=== PATIENT | female | born 1930 | race Caucasian/White ===

== ENCOUNTER 2018-07-24 19:10 | Inpatient (IN) | payer MEDICARE, OTHER, MEDICAID ==
[2018-07-24 19:28] LABS: ADD MAN DIFF? NO
[2018-07-24 19:32] LABS: WHITE BLOOD COUNT 13.3 10^3/ul (4.8-10.8)
[2018-07-24 19:32] LABS: ABNORMAL IP MESSAGE 1; BASOPHIL # 0.1 10^3/ul (0.0-0.1); BASOPHILS % 0.5 % (0.0-2.0); EOSINOPHILS # 0.1 10^3/ul (0.0-0.5); EOSINOPHILS % 0.6 % (0.0-7.0); HEMATOCRIT 32.9 % (37.0-47.0); HEMOGLOBIN 9.4 g/dl (12.0-16.0); LYMPHOCYTES # 2.7 10^3/ul (0.8-2.9); LYMPHOCYTES % 20.6 % (15.0-51.0); MEAN CORPUSCULAR HEMOGLOBIN 25.6 pg (29.0-33.0); MEAN CORPUSCULAR HGB CONC 28.6 g/dl (32.0-37.0); MEAN CORPUSCULAR VOLUME 89.6 fl (82.0-101.0); MEAN PLATELET VOLUME 11.1 fl (7.4-10.4); MONOCYTE # 1.6 10^3/ul (0.3-0.9); MONOCYTES % 11.9 % (0.0-11.0); NEUTROPHIL # 8.8 10^3/ul (1.6-7.5); NEUTROPHILS % 65.9 % (39.0-77.0); PLATELET COUNT 385 10^3/UL (140-415); RED BLOOD COUNT 3.67 10^6/ul (4.20-5.40); RED CELL DISTRIBUTION WIDTH 19.5 % (11.5-14.5)
[2018-07-24 19:35] LABS: POSITIVE DIFF @See below
[2018-07-24] MEDS: CEFTRIAXONE 1 GM/50 ML (PMX) 50 ML IVPB (19:44)
[2018-07-24] MEDS: SODIUM CHLORIDE 0.9% 1L BAG IV* (19:44)
[2018-07-24 19:49] LABS: ALANINE AMINOTRANSFERASE 13 IU/L (13-69); ALBUMIN 3.6 g/dl (3.3-4.9); ALBUMIN/GLOBULIN RATIO 0.72; ALKALINE PHOSPHATASE 122 IU/L (42-121); ANION GAP 17 (5-13); ASPARTATE AMINO TRANSFERASE 33 IU/L (15-46); BLOOD UREA NITROGEN 101 mg/dl (7-20); CARBON DIOXIDE 25 mmol/L (21-31); CHLORIDE 114 mmol/L (97-110); CREATININE 4.14 mg/dl (0.44-1.00); GLUCOSE 248 mg/dl (70-220); POTASSIUM 4.1 mmol/L (3.5-5.1); SODIUM 156 mmol/L (135-144); TOTAL PROTEIN 8.6 g/dl (6.1-8.1)
[2018-07-24 19:50] LABS: INR 1.24; PROTIME 15.8 Sec (11.9-14.9); PT RATIO 1.2
[2018-07-24 20:00] LABS: TROPONIN-I 0.093 ng/ml (0.000-0.120)
[2018-07-24 20:32] LABS: ADD UMIC YES; UR ASCORBIC ACID 20 mg/dL (NEGATIVE); UR BACTERIA FEW /HPF (NONE SEEN); UR BILIRUBIN (Dip) NEGATIVE (NEGATIVE); UR BLOOD (Dip) 2+ mg/dL (NEGATIVE); UR CLARITY TURBID (CLEAR); UR COLOR AMBER (YELLOW); UR GLUCOSE (Dip) NEGATIVE (NEGATIVE); UR KETONES (Dip) NEGATIVE (NEGATIVE); UR LEUKOCYTE ESTERASE (Dip) 3+ Leu/ul (NEGATIVE); UR NITRITE (Dip) NEGATIVE (NEGATIVE); UR RBC 106 /HPF (0-5); UR SPECIFIC GRAVITY (Dip) 1.016 (1.003-1.030); UR TOTAL PROTEIN (Dip) 1+ mg/dl (NEGATIVE); UR UROBILINOGEN (Dip) NEGATIVE (NEGATIVE); UR WBC > 182 /HPF (0-5)
[2018-07-24] MEDS ORDERED: SOD CHLORIDE 0.9% 1,000 ML IV (23:11)
[2018-07-24] MEDS ORDERED: ALBUTEROL/IPRATROPIUM (NEB) 3 ML AMP HHN (23:30)
[2018-07-24] MEDS ORDERED: ACETAMINOPHEN 325 MG TAB PO (23:30)
[2018-07-24] MEDS: DEXTROSE 5% 1,000 ML IV (23:30)
[2018-07-24] MEDS ORDERED: NACL 0.9% 3 ML SYG IV (23:30)
[2018-07-24] MEDS ORDERED: ONDANSETRON 4 MG INJ IV (23:30)
[2018-07-24] MEDS ORDERED: GLUCAGON 1 MG INJ IM (23:45)
[2018-07-24] MEDS ORDERED: GLUCOSE GEL 15 GRAM TUBE BUCCAL (23:45)
[2018-07-24] MEDS ORDERED: DEXTROSE 50% 50 ML SYRINGE IV ×2 (23:45)
[2018-07-24] MEDS ORDERED: GLUCOSE GEL 15 GRAM TUBE PO ×2 (23:45)
[2018-07-24 23:48] LABS: LACTIC ACID 1.8 mmol/L (0.5-2.0)
[2018-07-25] MEDS: ACCU-CHEK XX (02:00)
[2018-07-25 02:18] LABS: OCCULT BLOOD STOOL POSITIVE (NEGATIVE)
[2018-07-25] MEDS ORDERED: PENDING SANTYL ORDER FOR WOUND CARE XX (03:00)
[2018-07-25 05:35] LABS: ADD MAN DIFF? NO
[2018-07-25 05:48] LABS: WHITE BLOOD COUNT 10.2 10^3/ul (4.8-10.8)
[2018-07-25 05:48] LABS: ABNORMAL IP MESSAGE 1; BASOPHIL # 0.1 10^3/ul (0.0-0.1); BASOPHILS % 0.5 % (0.0-2.0); EOSINOPHILS # 0.4 10^3/ul (0.0-0.5); EOSINOPHILS % 3.9 % (0.0-7.0); HEMATOCRIT 29.3 % (37.0-47.0); HEMOGLOBIN 8.4 g/dl (12.0-16.0); LYMPHOCYTES # 2.2 10^3/ul (0.8-2.9); LYMPHOCYTES % 21.8 % (15.0-51.0); MEAN CORPUSCULAR HEMOGLOBIN 26.3 pg (29.0-33.0); MEAN CORPUSCULAR HGB CONC 28.7 g/dl (32.0-37.0); MEAN CORPUSCULAR VOLUME 91.6 fl (82.0-101.0); MEAN PLATELET VOLUME 11.5 fl (7.4-10.4); MONOCYTE # 0.8 10^3/ul (0.3-0.9); MONOCYTES % 7.9 % (0.0-11.0); NEUTROPHIL # 6.7 10^3/ul (1.6-7.5); NEUTROPHILS % 65.5 % (39.0-77.0); PLATELET COUNT 258 10^3/UL (140-415); RED CELL DISTRIBUTION WIDTH 19.5 % (11.5-14.5)
[2018-07-25 05:56] LABS: SODIUM,URINE RANDOM 61 mmol/L (30-90)
[2018-07-25 05:56] LABS: POTASSIUM,URINE RANDOM 45.3 mmol/L (25-125)
[2018-07-25 05:57] LABS: HEMOGLOBIN A1C 5.7 % (0-5.9)
[2018-07-25 05:59] LABS: POSITIVE DIFF @See below
[2018-07-25 06:18] LABS: ALANINE AMINOTRANSFERASE 13 IU/L (13-69); ALBUMIN 3.1 g/dl (3.3-4.9); ALBUMIN/GLOBULIN RATIO 0.64; ALKALINE PHOSPHATASE 100 IU/L (42-121); ANION GAP 12 (5-13); ASPARTATE AMINO TRANSFERASE 32 IU/L (15-46); BILIRUBIN,INDIRECT 0.1 mg/dl (0-1.1); BILIRUBIN,TOTAL 0.1 mg/dl (0.2-1.3); BLOOD UREA NITROGEN 96 mg/dl (7-20); CALCIUM 8.2 mg/dl (8.4-10.2); CARBON DIOXIDE 24 mmol/L (21-31); CHLORIDE 122 mmol/L (97-110); CREATININE 3.79 mg/dl (0.44-1.00); GLUCOSE 121 mg/dl (70-220); MAGNESIUM 2.5 mg/dl (1.7-2.5); SODIUM 158 mmol/L (135-144); TOTAL PROTEIN 7.9 g/dl (6.1-8.1)
[2018-07-25 06:23] LABS: IRON 30 ug/dl (35-150)
[2018-07-25 06:28] LABS: CHOL/HDL RATIO 7.6 RATIO; HDL CHOLESTEROL 8 mg/dl (33-92); LDL CHOLESTEROL,CALCULATED 28 mg/dl; TRIGLYCERIDES 127 mg/dl (0-149)
[2018-07-25 06:28] LABS: CHOLESTEROL 61 mg/dl (100-200)
[2018-07-25 06:33] LABS: % IRON SATURATION 10 % SAT (22-52); TOTAL IRON BINDING CAPACITY 292 ug/dl (241-421)
[2018-07-25 06:42] LABS: FERRITIN 19.7 ng/ml (11.1-264.0)
[2018-07-25] MEDS: FISH OIL 1,000 MG CAP PO ×2 (10:00→20:55)
[2018-07-25] MEDS: INSULIN ASPART [NOVOLOG] 3 ML PEN SC ×4 (10:04→21:00)
[2018-07-25] MEDS: CEFTRIAXONE 1 GM/50 ML (PMX) 50 ML IVPB (10:06)
[2018-07-25] MEDS: ENOXAPARIN 40 MG/0.4 ML SYG SC (11:01)
[2018-07-25 14:17] LABS: ANION GAP 11 (5-13); BLOOD UREA NITROGEN 95 mg/dl (7-20); CALCIUM 7.7 mg/dl (8.4-10.2); CARBON DIOXIDE 25 mmol/L (21-31); CHLORIDE 117 mmol/L (97-110); CREATININE 3.31 mg/dl (0.44-1.00); GLUCOSE 120 mg/dl (70-220); POTASSIUM 3.7 mmol/L (3.5-5.1); SODIUM 153 mmol/L (135-144)
[2018-07-25 17:14] LABS: OCCULT BLOOD STOOL NEGATIVE (NEGATIVE)
[2018-07-25] MEDS: DEXTROSE 5% 1,000 ML IV ×2 (17:54→20:53)
[2018-07-26] MEDS: ACCU-CHEK XX (02:00)
[2018-07-26 05:42] LABS: ABNORMAL IP MESSAGE 1; ADD MAN DIFF? NO; BASOPHILS % 0.7 % (0.0-2.0); EOSINOPHILS # 0.5 10^3/ul (0.0-0.5); EOSINOPHILS % 7.7 % (0.0-7.0); HEMATOCRIT 28.2 % (37.0-47.0); LYMPHOCYTES # 1.8 10^3/ul (0.8-2.9); LYMPHOCYTES % 31.3 % (15.0-51.0); MEAN CORPUSCULAR HEMOGLOBIN 26.1 pg (29.0-33.0); MEAN CORPUSCULAR HGB CONC 28.4 g/dl (32.0-37.0); MEAN CORPUSCULAR VOLUME 92.2 fl (82.0-101.0); MEAN PLATELET VOLUME 11.5 fl (7.4-10.4); MONOCYTE # 0.5 10^3/ul (0.3-0.9); MONOCYTES % 8.2 % (0.0-11.0); NEUTROPHIL # 3.1 10^3/ul (1.6-7.5); NEUTROPHILS % 51.9 % (39.0-77.0); PLATELET COUNT 211 10^3/UL (140-415); RED BLOOD COUNT 3.06 10^6/ul (4.20-5.40); RED CELL DISTRIBUTION WIDTH 18.6 % (11.5-14.5)
[2018-07-26 05:42] LABS: WHITE BLOOD COUNT 5.9 10^3/ul (4.8-10.8)
[2018-07-26 05:44] LABS: POSITIVE DIFF @See below
[2018-07-26 06:25] LABS: ANION GAP 11 (5-13); BLOOD UREA NITROGEN 87 mg/dl (7-20); CALCIUM 8.2 mg/dl (8.4-10.2); CARBON DIOXIDE 25 mmol/L (21-31); CHLORIDE 111 mmol/L (97-110); CREATININE 2.66 mg/dl (0.44-1.00); GLUCOSE 107 mg/dl (70-220); MAGNESIUM 2.2 mg/dl (1.7-2.5); PHOSPHORUS 4.4 mg/dl (2.5-4.9); POTASSIUM 3.3 mmol/L (3.5-5.1); SODIUM 147 mmol/L (135-144)
[2018-07-26] MEDS: CEFTRIAXONE 1 GM/50 ML (PMX) 50 ML IVPB (08:33)
[2018-07-26] MEDS: BALSAM PERU/CASTOR OIL 60 GM TUBE TOP (08:33)
[2018-07-26] MEDS: DEXTROSE 5%-0.225% NACL 1,000 ML IV ×2 (08:40→18:08)
[2018-07-26] MEDS: ENOXAPARIN 40 MG/0.4 ML SYG SC (08:50)
[2018-07-26] MEDS: INSULIN ASPART [NOVOLOG] 3 ML PEN SC ×4 (08:52→20:06)
[2018-07-26] MEDS: FISH OIL 1,000 MG CAP PO ×2 (08:53→20:00)
[2018-07-26] MEDS: POTASSIUM CHLORIDE 50 ML IVPB ×2 (10:11→12:13)
[2018-07-27] MEDS: ACCU-CHEK XX (01:20)
[2018-07-27] MEDS: DEXTROSE 5%-0.225% NACL 1,000 ML IV ×2 (03:43→14:15)
[2018-07-27 05:45] LABS: ADD MAN DIFF? NO
[2018-07-27 05:48] LABS: WHITE BLOOD COUNT 4.3 10^3/ul (4.8-10.8)
[2018-07-27 05:48] LABS: ABNORMAL IP MESSAGE 1; BASOPHILS % 0.5 % (0.0-2.0); EOSINOPHILS # 0.3 10^3/ul (0.0-0.5); HEMATOCRIT 25.9 % (37.0-47.0); HEMOGLOBIN 7.4 g/dl (12.0-16.0); LYMPHOCYTES # 1.2 10^3/ul (0.8-2.9); LYMPHOCYTES % 28.6 % (15.0-51.0); MEAN CORPUSCULAR HEMOGLOBIN 25.5 pg (29.0-33.0); MEAN CORPUSCULAR HGB CONC 28.6 g/dl (32.0-37.0); MEAN CORPUSCULAR VOLUME 89.3 fl (82.0-101.0); MEAN PLATELET VOLUME 11.4 fl (7.4-10.4); MONOCYTE # 0.4 10^3/ul (0.3-0.9); MONOCYTES % 8.6 % (0.0-11.0); NEUTROPHIL # 2.4 10^3/ul (1.6-7.5); NEUTROPHILS % 56.1 % (39.0-77.0); PLATELET COUNT 206 10^3/UL (140-415); RED CELL DISTRIBUTION WIDTH 18.4 % (11.5-14.5)
[2018-07-27 06:02] LABS: POSITIVE DIFF @See below
[2018-07-27 06:16] LABS: ANION GAP 9 (5-13); BLOOD UREA NITROGEN 67 mg/dl (7-20); CALCIUM 8.4 mg/dl (8.4-10.2); CARBON DIOXIDE 25 mmol/L (21-31); CHLORIDE 112 mmol/L (97-110); CREATININE 1.68 mg/dl (0.44-1.00); GLUCOSE 136 mg/dl (70-220); POTASSIUM 3.8 mmol/L (3.5-5.1); SODIUM 146 mmol/L (135-144)
[2018-07-27 06:29] LABS: FREE T4 (FREE THYROXINE) 1.28 ng/dl (0.85-1.93)
[2018-07-27] MEDS: INSULIN ASPART [NOVOLOG] 3 ML PEN SC ×4 (08:00→20:17)
[2018-07-27] MEDS: CEFTRIAXONE 1 GM/50 ML (PMX) 50 ML IVPB (08:10)
[2018-07-27] MEDS: ENOXAPARIN 40 MG/0.4 ML SYG SC (08:17)
[2018-07-27] MEDS: BALSAM PERU/CASTOR OIL 60 GM TUBE TOP (08:18)
[2018-07-27] MEDS: FISH OIL 1,000 MG CAP PO ×2 (08:19→20:17)
[2018-07-27] MEDS: morphine 2 MG INJ IV (09:25)
[2018-07-27] MEDS: ACETAMINOPHEN 325 MG TAB PO ×2 (11:30→19:30)
[2018-07-27 11:52] LABS: HEMATOCRIT 31.9 % (37.0-47.0); HEMOGLOBIN 9.1 g/dl (12.0-16.0)
[2018-07-27] MEDS: MEROPENEM 1 GM/50ML(PMX) 50 ML IVPB ×2 (13:35→20:51)
[2018-07-28] MEDS: ACCU-CHEK XX (00:49)
[2018-07-28] MEDS: DEXTROSE 5%-0.225% NACL 1,000 ML IV ×3 (00:50→11:15)
[2018-07-28] MEDS: ACETAMINOPHEN 325 MG TAB PO ×3 (03:30→19:30)
[2018-07-28 06:03] LABS: ADD MAN DIFF? NO
[2018-07-28 06:07] LABS: BASOPHILS % 0.4 % (0.0-2.0); EOSINOPHILS # 0.3 10^3/ul (0.0-0.5); EOSINOPHILS % 5.5 % (0.0-7.0); HEMATOCRIT 26.5 % (37.0-47.0); HEMOGLOBIN 7.7 g/dl (12.0-16.0); LYMPHOCYTES # 1.5 10^3/ul (0.8-2.9); LYMPHOCYTES % 26.5 % (15.0-51.0); MEAN CORPUSCULAR HEMOGLOBIN 25.8 pg (29.0-33.0); MEAN CORPUSCULAR HGB CONC 29.1 g/dl (32.0-37.0); MEAN CORPUSCULAR VOLUME 88.6 fl (82.0-101.0); MEAN PLATELET VOLUME 11.4 fl (7.4-10.4); MONOCYTE # 0.4 10^3/ul (0.3-0.9); MONOCYTES % 7.4 % (0.0-11.0); NEUTROPHIL # 3.4 10^3/ul (1.6-7.5); NEUTROPHILS % 59.7 % (39.0-77.0); PLATELET COUNT 225 10^3/UL (140-415); RED BLOOD COUNT 2.99 10^6/ul (4.20-5.40)
[2018-07-28 06:07] LABS: WHITE BLOOD COUNT 5.7 10^3/ul (4.8-10.8)
[2018-07-28 06:45] LABS: PHOSPHORUS 2.6 mg/dl (2.5-4.9)
[2018-07-28 06:45] LABS: MAGNESIUM 1.8 mg/dl (1.7-2.5)
[2018-07-28 07:04] LABS: ANION GAP 8 (5-13); BLOOD UREA NITROGEN 41 mg/dl (7-20); CALCIUM 8.2 mg/dl (8.4-10.2); CARBON DIOXIDE 23 mmol/L (21-31); CHLORIDE 109 mmol/L (97-110); CREATININE 1.07 mg/dl (0.44-1.00); GLUCOSE 126 mg/dl (70-220); POTASSIUM 3.4 mmol/L (3.5-5.1); SODIUM 140 mmol/L (135-144)
[2018-07-28] MEDS: INSULIN ASPART [NOVOLOG] 3 ML PEN SC ×4 (08:03→20:36)
[2018-07-28] MEDS: BALSAM PERU/CASTOR OIL 60 GM TUBE TOP (09:49)
[2018-07-28] MEDS: MEROPENEM 1 GM/50ML(PMX) 50 ML IVPB ×2 (09:49→20:39)
[2018-07-28] MEDS: FISH OIL 1,000 MG CAP PO ×2 (09:49→20:37)
[2018-07-28] MEDS: ENOXAPARIN 40 MG/0.4 ML SYG SC (09:51)
[2018-07-28] MEDS: POTASSIUM CHLORIDE 100 ML IVPB ×2 (12:46→14:39)
[2018-07-28 14:22] LABS: IMMEDIATE SPIN CROSSMATCH 1 2
[2018-07-29] MEDS: ACCU-CHEK XX (01:00)
[2018-07-29] MEDS: ACETAMINOPHEN 325 MG TAB PO ×2 (03:30→11:30)
[2018-07-29] MEDS: DEXTROSE 5%-0.225% NACL 1,000 ML IV (03:55)
[2018-07-29] MEDS ORDERED: PANTOPRAZOLE 40 MG INJ (06:34)
[2018-07-29] MEDS: PANTOPRAZOLE 40 MG INJ IV (06:42)
[2018-07-29 07:36] LABS: ADD MAN DIFF? NO
[2018-07-29 07:42] LABS: WHITE BLOOD COUNT 4.3 10^3/ul (4.8-10.8)
[2018-07-29 07:42] LABS: BASOPHILS % 0.5 % (0.0-2.0); EOSINOPHILS # 0.2 10^3/ul (0.0-0.5); EOSINOPHILS % 4.1 % (0.0-7.0); HEMATOCRIT 32.7 % (37.0-47.0); LYMPHOCYTES # 1.1 10^3/ul (0.8-2.9); LYMPHOCYTES % 24.7 % (15.0-51.0); MEAN CORPUSCULAR HEMOGLOBIN 26.9 pg (29.0-33.0); MEAN CORPUSCULAR HGB CONC 30.6 g/dl (32.0-37.0); MEAN CORPUSCULAR VOLUME 87.9 fl (82.0-101.0); MEAN PLATELET VOLUME 11.4 fl (7.4-10.4); MONOCYTE # 0.4 10^3/ul (0.3-0.9); MONOCYTES % 8.8 % (0.0-11.0); NEUTROPHIL # 2.7 10^3/ul (1.6-7.5); NEUTROPHILS % 61.7 % (39.0-77.0); PLATELET COUNT 190 10^3/UL (140-415); RED BLOOD COUNT 3.72 10^6/ul (4.20-5.40); RED CELL DISTRIBUTION WIDTH 16.8 % (11.5-14.5)
[2018-07-29] MEDS: INSULIN ASPART [NOVOLOG] 3 ML PEN SC ×2 (08:00→12:00)
[2018-07-29] MEDS: BALSAM PERU/CASTOR OIL 60 GM TUBE TOP (08:32)
[2018-07-29] MEDS: MEROPENEM 1 GM/50ML(PMX) 50 ML IVPB (08:32)
[2018-07-29] MEDS: FISH OIL 1,000 MG CAP PO (08:32)
[2018-07-30] MEDS ORDERED: PANTOPRAZOLE (EC) 40 MG TAB PO (06:00)
== END 2018-07-29 13:12 | disposition home health service (06) | DRG 872 ==
LOC: E/R 19:10 → PP2 07-27 21:43 → 6WM 20:30
PROVIDERS: Internal Medicine
PROC: 30233N1 Transfusion of Nonautologous Red Blood Cells into Peripheral Vein, Percutaneous Approach (ICD-10-PCS; principal; 2018-07-28)
DX: A41.9 Sepsis, unspecified organism (principal); N17.9 Acute kidney failure, unspecified; E87.0 Hyperosmolality and hypernatremia; N39.0 Urinary tract infection, site not specified; K92.2 Gastrointestinal hemorrhage, unspecified; E86.0 Dehydration; N28.9 Disorder of kidney and ureter, unspecified; N18.9 Chronic kidney disease, unspecified; B96.20 Unspecified Escherichia coli [E. coli] as the cause of diseases classified elsewhere; Z16.12 Extended spectrum beta lactamase (ESBL) resistance; Z66 Do not resuscitate; F03.90 Unspecified dementia, unspecified severity, without behavioral disturbance, psychotic disturbance, mood disturbance, and anxiety
CPT/HCPCS: 36430; 71045; 76775; 80048; 80053; 80061; 81001; 82270; 82436; 82728; 82962; 83036; 83540; 83605; 83735; 84100; 84133; 84300; 84439; 84443; 84484; 85014; 85018; 85025; 85610; 85730; 86644; 86850; 86860; 86870; 86880; 86900; 86901; 86906; 86920; 86970; 86971; 86978; 87040; 87045; 87081; 87086; 92526; 92610; 93005; 96374; 99291-25

== ENCOUNTER 2018-08-09 18:47 | Inpatient (IN) | payer MEDICARE, OTHER ==
[2018-08-09] MEDS: SODIUM CHLORIDE 0.9% 1L BAG IV* (19:12)
[2018-08-09 19:19] LABS: ADD MAN DIFF? NO
[2018-08-09 19:23] LABS: ABNORMAL IP MESSAGE 1; BASOPHIL # 0.1 10^3/ul (0.0-0.1); BASOPHILS % 0.3 % (0.0-2.0); HEMATOCRIT 33.5 % (37.0-47.0); HEMOGLOBIN 10.2 g/dl (12.0-16.0); LYMPHOCYTES # 1.6 10^3/ul (0.8-2.9); LYMPHOCYTES % 10.5 % (15.0-51.0); MEAN CORPUSCULAR HEMOGLOBIN 28.6 pg (29.0-33.0); MEAN CORPUSCULAR HGB CONC 30.4 g/dl (32.0-37.0); MEAN CORPUSCULAR VOLUME 93.8 fl (82.0-101.0); MEAN PLATELET VOLUME 11.4 fl (7.4-10.4); MONOCYTES % 6.7 % (0.0-11.0); NEUTROPHIL # 12.6 10^3/ul (1.6-7.5); NEUTROPHILS % 81.6 % (39.0-77.0); PLATELET COUNT 283 10^3/UL (140-415); RED BLOOD COUNT 3.57 10^6/ul (4.20-5.40); RED CELL DISTRIBUTION WIDTH 22.8 % (11.5-14.5)
[2018-08-09 19:23] LABS: WHITE BLOOD COUNT 15.4 10^3/ul (4.8-10.8)
[2018-08-09 19:32] LABS: POSITIVE DIFF @See below
[2018-08-09 19:34] LABS: PROTIME 16.4 Sec (11.9-14.9); PT RATIO 1.3
[2018-08-09 19:35] LABS: PARTIAL THROMBOPLASTIN TIME 34.9 Sec (23.0-35.0)
[2018-08-09] MEDS: CEFEPIME 2GM/50 ML (PMX) 50 ML IVPB (19:35)
[2018-08-09 19:37] LABS: ANION GAP 7 (5-13); BLOOD UREA NITROGEN 63 mg/dl (7-20); CALCIUM 9.5 mg/dl (8.4-10.2); CARBON DIOXIDE 29 mmol/L (21-31); CHLORIDE 114 mmol/L (97-110); CREATININE 2.09 mg/dl (0.44-1.00); GLUCOSE 187 mg/dl (70-220); POTASSIUM 4.8 mmol/L (3.5-5.1); SODIUM 150 mmol/L (135-144)
[2018-08-09] MEDS: ACETAMINOPHEN 650 MG SUPP PR (19:40)
[2018-08-09 19:48] LABS: TROPONIN-I 0.108 ng/ml (0.000-0.120)
[2018-08-09 20:07] LABS: ADD UMIC YES; UR ASCORBIC ACID 20 mg/dL (NEGATIVE); UR BACTERIA FEW /HPF (NONE SEEN); UR BILIRUBIN (Dip) NEGATIVE (NEGATIVE); UR BLOOD (Dip) 3+ mg/dL (NEGATIVE); UR BUDDING YEAST MANY /HPF (NONE SEEN); UR CLARITY TURBID (CLEAR); UR COLOR AMBER (YELLOW); UR GLUCOSE (Dip) NEGATIVE (NEGATIVE); UR KETONES (Dip) NEGATIVE (NEGATIVE); UR LEUKOCYTE ESTERASE (Dip) 3+ Leu/ul (NEGATIVE); UR MUCUS FEW /HPF (NONE SEEN); UR NITRITE (Dip) NEGATIVE (NEGATIVE); UR RBC 90 /HPF (0-5); UR SPECIFIC GRAVITY (Dip) 1.018 (1.003-1.030); UR SQUAMOUS EPITHELIAL CELL MODERATE /HPF (FEW); UR TOTAL PROTEIN (Dip) 1+ mg/dl (NEGATIVE); UR UROBILINOGEN (Dip) NEGATIVE (NEGATIVE); UR WBC > 182 /HPF (0-5)
[2018-08-09] MEDS: VANCOMYCIN 1 GM (PMX) 250 ML IVPB (20:09)
[2018-08-09] MEDS ORDERED: ONDANSETRON 4 MG INJ IV ×2 (20:30)
[2018-08-09] MEDS ORDERED: NACL 0.9% 3 ML SYG IV (20:30)
[2018-08-09] MEDS ORDERED: ACETAMINOPHEN 325 MG TAB PO ×2 (20:30)
[2018-08-09] MEDS: PIPER-TAZO 2.25 GM (PMX) 50 ML IVPB (22:17)
[2018-08-09] MEDS: SOD CHLORIDE 0.45% 1,000 ML IV (22:17)
[2018-08-09 23:35] LABS: LACTIC ACID 1.5 mmol/L (0.5-2.0)
[2018-08-09 23:38] LABS: ANION GAP 7 (5-13); BLOOD UREA NITROGEN 62 mg/dl (7-20); CALCIUM 8.4 mg/dl (8.4-10.2); CARBON DIOXIDE 25 mmol/L (21-31); CHLORIDE 118 mmol/L (97-110); CREATININE 1.82 mg/dl (0.44-1.00); GLUCOSE 185 mg/dl (70-220); POTASSIUM 4.1 mmol/L (3.5-5.1); SODIUM 150 mmol/L (135-144)
[2018-08-10] MEDS ORDERED: PENDING SANTYL ORDER FOR WOUND CARE XX (04:30)
[2018-08-10] MEDS: PIPER-TAZO 2.25 GM (PMX) 50 ML IVPB (05:28)
[2018-08-10 07:20] LABS: ADD MAN DIFF? NO
[2018-08-10 07:29] LABS: ABNORMAL IP MESSAGE 1; BASOPHILS % 0.4 % (0.0-2.0); EOSINOPHILS % 0.5 % (0.0-7.0); HEMATOCRIT 28.4 % (37.0-47.0); HEMOGLOBIN 8.4 g/dl (12.0-16.0); LYMPHOCYTES % 11.8 % (15.0-51.0); MEAN CORPUSCULAR HEMOGLOBIN 28.1 pg (29.0-33.0); MEAN CORPUSCULAR HGB CONC 29.6 g/dl (32.0-37.0); MONOCYTE # 0.5 10^3/ul (0.3-0.9); MONOCYTES % 6.3 % (0.0-11.0); NEUTROPHIL # 6.5 10^3/ul (1.6-7.5); NEUTROPHILS % 80.5 % (39.0-77.0); PLATELET COUNT 178 10^3/UL (140-415); RED BLOOD COUNT 2.99 10^6/ul (4.20-5.40); RED CELL DISTRIBUTION WIDTH 22.6 % (11.5-14.5)
[2018-08-10 07:45] LABS: POSITIVE DIFF @See below
[2018-08-10 08:10] LABS: ALANINE AMINOTRANSFERASE 18 IU/L (13-69); ALBUMIN 2.6 g/dl (3.3-4.9); ALBUMIN/GLOBULIN RATIO 0.65; ALKALINE PHOSPHATASE 114 IU/L (42-121); ANION GAP 7 (5-13); ASPARTATE AMINO TRANSFERASE 35 IU/L (15-46); BILIRUBIN,INDIRECT 0.7 mg/dl (0-1.1); BILIRUBIN,TOTAL 0.7 mg/dl (0.2-1.3); BLOOD UREA NITROGEN 64 mg/dl (7-20); CALCIUM 8.5 mg/dl (8.4-10.2); CARBON DIOXIDE 26 mmol/L (21-31); CHLORIDE 117 mmol/L (97-110); CREATININE 1.92 mg/dl (0.44-1.00); GLUCOSE 132 mg/dl (70-220); POTASSIUM 4.4 mmol/L (3.5-5.1); SODIUM 150 mmol/L (135-144); TOTAL PROTEIN 6.6 g/dl (6.1-8.1)
[2018-08-10] MEDS: SODIUM CHLORIDE 0.45% 500 ML BAG IV* (09:00)
[2018-08-10] MEDS: SOD CHLORIDE 0.45% 1,000 ML IV (11:27)
[2018-08-10] MEDS: MEROPENEM 500MG/50 ML (PMX) 50 ML IVPB ×2 (11:32→20:28)
[2018-08-10 11:56] LABS: ANION GAP 6 (5-13); BLOOD UREA NITROGEN 64 mg/dl (7-20); CALCIUM 8.2 mg/dl (8.4-10.2); CARBON DIOXIDE 24 mmol/L (21-31); CHLORIDE 119 mmol/L (97-110); CREATININE 1.83 mg/dl (0.44-1.00); GLUCOSE 111 mg/dl (70-220); POTASSIUM 4.2 mmol/L (3.5-5.1); SODIUM 149 mmol/L (135-144)
[2018-08-10] MEDS: DEXTROSE 5%-0.45% NACL 1,000 ML IV (15:22)
[2018-08-10] MEDS: FLUCONAZOLE 200 MG (PMX) 100 ML IVPB (16:55)
[2018-08-10] MEDS: FAMOTIDINE 20 MG INJ IV (20:28)
[2018-08-11] MEDS: DEXTROSE 5%-0.45% NACL 1,000 ML IV ×2 (04:22→15:30)
[2018-08-11 06:27] LABS: ADD MAN DIFF? NO
[2018-08-11 06:30] LABS: BASOPHILS % 0.1 % (0.0-2.0); EOSINOPHILS # 0.2 10^3/ul (0.0-0.5); EOSINOPHILS % 3.1 % (0.0-7.0); HEMATOCRIT 26.7 % (37.0-47.0); HEMOGLOBIN 7.8 g/dl (12.0-16.0); LYMPHOCYTES # 0.9 10^3/ul (0.8-2.9); LYMPHOCYTES % 12.9 % (15.0-51.0); MEAN CORPUSCULAR HEMOGLOBIN 28.2 pg (29.0-33.0); MEAN CORPUSCULAR HGB CONC 29.2 g/dl (32.0-37.0); MEAN CORPUSCULAR VOLUME 96.4 fl (82.0-101.0); MEAN PLATELET VOLUME 11.6 fl (7.4-10.4); MONOCYTE # 0.5 10^3/ul (0.3-0.9); MONOCYTES % 6.3 % (0.0-11.0); NEUTROPHIL # 5.5 10^3/ul (1.6-7.5); NEUTROPHILS % 76.8 % (39.0-77.0); PLATELET COUNT 167 10^3/UL (140-415); RED BLOOD COUNT 2.77 10^6/ul (4.20-5.40)
[2018-08-11 06:30] LABS: WHITE BLOOD COUNT 7.2 10^3/ul (4.8-10.8)
[2018-08-11 06:52] LABS: ANION GAP 6 (5-13); BLOOD UREA NITROGEN 60 mg/dl (7-20); CALCIUM 8.2 mg/dl (8.4-10.2); CARBON DIOXIDE 23 mmol/L (21-31); CHLORIDE 119 mmol/L (97-110); CREATININE 1.56 mg/dl (0.44-1.00); GLUCOSE 117 mg/dl (70-220); MAGNESIUM 2.1 mg/dl (1.7-2.5); POTASSIUM 3.8 mmol/L (3.5-5.1); SODIUM 148 mmol/L (135-144)
[2018-08-11] MEDS: FAMOTIDINE 20 MG INJ IV (09:01)
[2018-08-11] MEDS: MEROPENEM 500MG/50 ML (PMX) 50 ML IVPB ×2 (12:00→20:39)
[2018-08-11] MEDS: FLUCONAZOLE 200 MG (PMX) 100 ML IVPB (16:00)
[2018-08-12] MEDS: DEXTROSE 5%-0.45% NACL 1,000 ML IV ×2 (05:16→16:40)
[2018-08-12] MEDS: MEROPENEM 500MG/50 ML (PMX) 50 ML IVPB ×2 (09:29→21:00)
[2018-08-12] MEDS: FAMOTIDINE 20 MG INJ IV (09:29)
[2018-08-12] MEDS: FLUCONAZOLE 200 MG (PMX) 100 ML IVPB (16:38)
[2018-08-13] MEDS: DEXTROSE 5%-0.45% NACL 1,000 ML IV ×2 (04:12→17:09)
[2018-08-13 07:17] LABS: ADD MAN DIFF? NO
[2018-08-13 07:18] LABS: ABNORMAL IP MESSAGE 1; BASOPHILS % 0.2 % (0.0-2.0); EOSINOPHILS # 0.2 10^3/ul (0.0-0.5); HEMATOCRIT 30.8 % (37.0-47.0); HEMOGLOBIN 9.1 g/dl (12.0-16.0); LYMPHOCYTES # 1.3 10^3/ul (0.8-2.9); LYMPHOCYTES % 25.5 % (15.0-51.0); MEAN CORPUSCULAR HEMOGLOBIN 27.7 pg (29.0-33.0); MEAN CORPUSCULAR HGB CONC 29.5 g/dl (32.0-37.0); MEAN CORPUSCULAR VOLUME 93.6 fl (82.0-101.0); MEAN PLATELET VOLUME 11.8 fl (7.4-10.4); MONOCYTE # 0.7 10^3/ul (0.3-0.9); MONOCYTES % 12.5 % (0.0-11.0); PLATELET COUNT 204 10^3/UL (140-415); RED BLOOD COUNT 3.29 10^6/ul (4.20-5.40); RED CELL DISTRIBUTION WIDTH 22.5 % (11.5-14.5)
[2018-08-13 07:18] LABS: WHITE BLOOD COUNT 5.2 10^3/ul (4.8-10.8)
[2018-08-13 07:20] LABS: POSITIVE DIFF @See below
[2018-08-13 07:50] LABS: ANION GAP 7 (5-13); BLOOD UREA NITROGEN 36 mg/dl (7-20); CALCIUM 8.4 mg/dl (8.4-10.2); CARBON DIOXIDE 21 mmol/L (21-31); CHLORIDE 118 mmol/L (97-110); CREATININE 0.99 mg/dl (0.44-1.00); GLUCOSE 96 mg/dl (70-220); MAGNESIUM 1.9 mg/dl (1.7-2.5); POTASSIUM 3.1 mmol/L (3.5-5.1); SODIUM 146 mmol/L (135-144)
[2018-08-13] MEDS: MEROPENEM 500MG/50 ML (PMX) 50 ML IVPB ×2 (08:29→21:05)
[2018-08-13] MEDS: FAMOTIDINE 20 MG INJ IV (09:37)
[2018-08-13] MEDS: POTASSIUM CHLORIDE 100 ML IVPB ×3 (10:44→15:05)
[2018-08-13] MEDS ORDERED: VANCOMYCIN IV PER PHARMACY XX (12:30)
[2018-08-13] MEDS: VANCOMYCIN 1 GM 250 ML IVPB (13:37)
[2018-08-13] MEDS: KETOROLAC 15 MG INJ IV (15:23)
[2018-08-13] MEDS: FLUCONAZOLE 200 MG (PMX) 100 ML IVPB (17:00)
[2018-08-13] MEDS: PANTOPRAZOLE 40 MG INJ IV (17:11)
[2018-08-13 18:56] LABS: HEMATOCRIT 29.3 % (37.0-47.0); HEMOGLOBIN 8.7 g/dl (12.0-16.0)
[2018-08-13 22:47] LABS: ADD MAN DIFF? NO
[2018-08-13 22:49] LABS: WHITE BLOOD COUNT 7.5 10^3/ul (4.8-10.8)
[2018-08-13 22:49] LABS: BASOPHILS % 0.3 % (0.0-2.0); EOSINOPHILS # 0.1 10^3/ul (0.0-0.5); EOSINOPHILS % 1.5 % (0.0-7.0); HEMATOCRIT 26.8 % (37.0-47.0); LYMPHOCYTES # 1.8 10^3/ul (0.8-2.9); LYMPHOCYTES % 24.2 % (15.0-51.0); MEAN CORPUSCULAR HGB CONC 29.9 g/dl (32.0-37.0); MEAN CORPUSCULAR VOLUME 93.7 fl (82.0-101.0); MEAN PLATELET VOLUME 11.3 fl (7.4-10.4); MONOCYTE # 0.7 10^3/ul (0.3-0.9); MONOCYTES % 9.5 % (0.0-11.0); NEUTROPHIL # 4.7 10^3/ul (1.6-7.5); NEUTROPHILS % 63.3 % (39.0-77.0); PLATELET COUNT 183 10^3/UL (140-415); RED BLOOD COUNT 2.86 10^6/ul (4.20-5.40); RED CELL DISTRIBUTION WIDTH 21.8 % (11.5-14.5)
[2018-08-14 01:26] LABS: ADD MAN DIFF? NO
[2018-08-14 01:28] LABS: WHITE BLOOD COUNT 8.3 10^3/ul (4.8-10.8)
[2018-08-14 01:28] LABS: ABNORMAL IP MESSAGE 1; BASOPHILS % 0.2 % (0.0-2.0); EOSINOPHILS # 0.3 10^3/ul (0.0-0.5); HEMATOCRIT 24.2 % (37.0-47.0); HEMOGLOBIN 7.2 g/dl (12.0-16.0); LYMPHOCYTES # 2.2 10^3/ul (0.8-2.9); LYMPHOCYTES % 25.8 % (15.0-51.0); MEAN CORPUSCULAR HEMOGLOBIN 28.3 pg (29.0-33.0); MEAN CORPUSCULAR HGB CONC 29.8 g/dl (32.0-37.0); MEAN CORPUSCULAR VOLUME 95.3 fl (82.0-101.0); MEAN PLATELET VOLUME 11.9 fl (7.4-10.4); MONOCYTE # 0.8 10^3/ul (0.3-0.9); MONOCYTES % 9.1 % (0.0-11.0); NEUTROPHILS % 60.5 % (39.0-77.0); PLATELET COUNT 263 10^3/UL (140-415); RED BLOOD COUNT 2.54 10^6/ul (4.20-5.40); RED CELL DISTRIBUTION WIDTH 22.1 % (11.5-14.5)
[2018-08-14 01:31] LABS: POSITIVE DIFF @See below
[2018-08-14] MEDS: SOD CHLORIDE 0.9% 500 ML IV (02:47)
[2018-08-14] MEDS: DEXTROSE 5%-0.45% NACL 1,000 ML IV (05:54)
[2018-08-14] MEDS: PANTOPRAZOLE 40 MG INJ IV (05:54)
[2018-08-14 06:06] LABS: ADD MAN DIFF? NO
[2018-08-14 06:12] LABS: ABNORMAL IP MESSAGE 1; BASOPHILS % 0.5 % (0.0-2.0); EOSINOPHILS # 0.3 10^3/ul (0.0-0.5); EOSINOPHILS % 4.5 % (0.0-7.0); HEMATOCRIT 21.4 % (37.0-47.0); LYMPHOCYTES # 2.1 10^3/ul (0.8-2.9); LYMPHOCYTES % 32.1 % (15.0-51.0); MEAN CORPUSCULAR HEMOGLOBIN 27.8 pg (29.0-33.0); MEAN CORPUSCULAR HGB CONC 29.4 g/dl (32.0-37.0); MEAN CORPUSCULAR VOLUME 94.3 fl (82.0-101.0); MEAN PLATELET VOLUME 11.4 fl (7.4-10.4); MONOCYTE # 0.5 10^3/ul (0.3-0.9); MONOCYTES % 6.9 % (0.0-11.0); NEUTROPHIL # 3.6 10^3/ul (1.6-7.5); NEUTROPHILS % 53.7 % (39.0-77.0); PLATELET COUNT 229 10^3/UL (140-415); RED BLOOD COUNT 2.27 10^6/ul (4.20-5.40); RED CELL DISTRIBUTION WIDTH 22.4 % (11.5-14.5)
[2018-08-14 06:12] LABS: WHITE BLOOD COUNT 6.6 10^3/ul (4.8-10.8)
[2018-08-14 06:41] LABS: POSITIVE DIFF @See below
[2018-08-14 06:42] LABS: HEMOGLOBIN 6.3 g/dl (12.0-16.0)
[2018-08-14 06:43] LABS: ANION GAP 7 (5-13); BLOOD UREA NITROGEN 31 mg/dl (7-20); CALCIUM 8.1 mg/dl (8.4-10.2); CARBON DIOXIDE 18 mmol/L (21-31); CHLORIDE 118 mmol/L (97-110); CREATININE 0.91 mg/dl (0.44-1.00); GLUCOSE 85 mg/dl (70-220); MAGNESIUM 1.8 mg/dl (1.7-2.5); POTASSIUM 4.3 mmol/L (3.5-5.1); SODIUM 143 mmol/L (135-144)
[2018-08-14 07:20] LABS: PATH REVIEW? YES
[2018-08-14] MEDS: morphine 2 MG INJ IV ×3 (09:11→19:49)
[2018-08-14 09:22] LABS: IMMEDIATE SPIN CROSSMATCH 1 1
[2018-08-14] MEDS: MEROPENEM 500MG/50 ML (PMX) 50 ML IVPB (09:39)
[2018-08-14] MEDS ORDERED: ATROPINE SULFATE 1% 5ML SL (12:00)
[2018-08-14] MEDS ORDERED: ONDANSETRON 4 MG INJ IV (12:00)
[2018-08-14] MEDS ORDERED: VANCOMYCIN 500MG/NS (PMX) 100 ML IVPB (13:00)
[2018-08-14] MEDS: morphine (DRIP) 100 MG/100 ML 100 ML IV ×2 (13:49→17:41)
[2018-08-14] MEDS: LORAZEPAM 2 MG INJ IV (21:59)
[2018-08-16] MEDS ORDERED: VITAMIN A & D 5 GM OINT PACKET TOP (11:22)
[2018-08-16] MEDS ORDERED: morphine SULFATE/PF (2 MG/2 ML) SYG IV (17:00)
[2018-08-17] MEDS: morphine (DRIP) 100 MG/100 ML 100 ML IV (04:37)
[2018-08-17] MEDS: ARTIFICIAL TEARS 15 ML OPH BOTH EYES (21:04)
[2018-08-18] MEDS: morphine (DRIP) 100 MG/100 ML 100 ML IV (11:46)
== END 2018-08-19 00:40 | disposition expired | DRG 871 ==
LOC: E/R 18:47 → MS1 08-14 22:25 → TEL 20:05
PROC: 30233N1 Transfusion of Nonautologous Red Blood Cells into Peripheral Vein, Percutaneous Approach (ICD-10-PCS; principal; 2018-08-14)
DX: A41.9 Sepsis, unspecified organism (principal); G92 Toxic encephalopathy; J96.00 Acute respiratory failure, unspecified whether with hypoxia or hypercapnia; E43 Unspecified severe protein-calorie malnutrition; N39.0 Urinary tract infection, site not specified; N17.9 Acute kidney failure, unspecified; E87.0 Hyperosmolality and hypernatremia; K62.5 Hemorrhage of anus and rectum; R65.20 Severe sepsis without septic shock; Z66 Do not resuscitate; Z68.20 Body mass index [BMI] 20.0-20.9, adult; F03.90 Unspecified dementia, unspecified severity, without behavioral disturbance, psychotic disturbance, mood disturbance, and anxiety; I10 Essential (primary) hypertension; N18.9 Chronic kidney disease, unspecified; R53.81 Other malaise
CPT/HCPCS: 36415; 36430; 71045; 80048; 80053; 81001; 83605; 83735; 84484; 85014; 85018; 85025; 85610; 85730; 86850; 86860; 86870; 86880; 86900; 86901; 86920; 87040; 87081; 87086; 92526; 92610; 93005; 96365; 99291-25